=== PATIENT | male | born 1960 | race Caucasian/White ===

== ENCOUNTER 2023-06-06 08:47 | Outpatient (CLI) | payer BC, SELFPAY ==
--- NOTE | ~2023-06-06 | CT_ITS ---
Non-contrast CT scan of the Pelvis Clinical indication: Inguinal hernia Technique: 2.5 mm axial scans were obtained through the pelvis without intravenous or oral contrast. Dose reduction technique was used on this scan by utilizing automated exposure control and iterative reconstruction technique. The dose-length product (DLP) was 472.40 mGy-cm. Findings: There is sigmoid diverticulosis. No evidence for bowel obstruction. No ascites. Urinary hailey dder unremarkable. No pelvic mass evident. Moderate sized fat-containing left inguinal hernia present. Impression: Moderate sized fat-containing left inguinal hernia. Sigmoid diverticulosis with probable mild chronic wall thickening. Correlate clinically for any possi bility of mild acute diverticulitis. Reviewed, dictated and finalized at location . Impression: Moderate sized fat-containing left inguinal hernia. Sigmoid diverticulosis with probable mild chronic wall thickening. Correlate cl inically for any possibility of mild acute diverticulitis.
== END 2023-06-06 08:48 | disposition home or self-care (01) ==
LOC: ANHIMG 08:50
PROVIDERS: PCP Family Medicine; Visit Provider Surgery
DX: K40.90 Unilateral inguinal hernia, without obstruction or gangrene, not specified as recurrent (principal); K57.30 Diverticulosis of large intestine without perforation or abscess without bleeding
CPT/HCPCS: 72192

== ENCOUNTER 2023-07-13 07:47 | Outpatient (CLI) | payer BC, SELFPAY ==
--- NOTE | 2023-07-13 08:00 | ECG_ITS ---
SEE SCANNED COPY FOR CONFIRMED REPORT MTDD
[2023-07-13 08:30] LABS: Basophils Absolute Auto 0.1 K/mm3 (0.0-0.1); Basophils Percent Auto 0.5 % (0.2-1.2); Eosinophils Absolute Auto 0.2 K/mm3 (0-0.3); Eosinophils Percent Auto 2.2 % (0-4.4); Hematocrit 48.2 % (42.0-52.0); Hemoglobin 15.7 g/dL (14.0-18.0); Immature Granulocyte Absolute 0.04 K/mm3 (0.00-0.031); Immature Granulocyte Percent A 0.4 % (0-0.5); Lymphocytes Absolute Auto 2.93 K/mm3 (0.9-3.2); Lymphocytes Percent Auto 31.3 % (18.3-44.2); Mean Corpuscular HGB Conc 32.6 g/dl (32-36); Mean Corpuscular Hemoglobin 30.3 pg (26-34); Mean Corpuscular Volume 92.9 fl (80-100); Mean Platelet Volume 10.8 fl (7.4-10.4); Monocytes Absolute Auto 0.9 K/mm3 (0.1-0.6); Monocytes Percent Auto 9.4 % (2.6-8.5); Neutrophils Absolute Auto 5.3 K/mm3 (1.3-6.7); Neutrophils Percent Auto 56.2 % (45.5-73.1); Platelet Count Result 208 k/mm3 (150-375); Red Blood Count 5.19 M/mm3 (4.6-6.20); Red Cell Distribution Width 13.4 % (11.5-14.5); White Blood Count 9.4 K/mm3 (4.5-10.0)
== END 2023-07-13 07:48 | disposition home or self-care (01) ==
LOC: ANHSURGERY 07:50
PROVIDERS: PCP Family Medicine; Visit Provider Surgery
DX: Z01.818 Encounter for other preprocedural examination (principal); K40.90 Unilateral inguinal hernia, without obstruction or gangrene, not specified as recurrent; I10 Essential (primary) hypertension
CPT/HCPCS: 36415; 85025; 86850; 86900; 86901; 93005

== ENCOUNTER 2023-07-17 00:49 | Day surgery (SDC) | payer BC, SELFPAY ==
[2023-07-10 08:07] VITALS: BMI 28.5
--- NOTE | 2023-07-10 08:13 | PC.NURSE ---
Report to the Outpatient Waiting Room, entrance under the green pavilion located off [facility], at time _1130_ on date _[id number]_. Planned Procedure Time: _130pm_. Time changes happen often and if your time is changed the preop area will call you the afternoon before. - You and your visitor will be asked to self-screen and do not enter if you have any COVID symptoms. - A mask is optional within the hospital at this time. Patients may have clear liquids (water, carbonated beverages, clear teas, apple juice) until 3 hours prior to surgery with a maximum of 20 ounces. - No food from midnight until time of surgery Take the following medications with a SIP of water the morning of surgery: __Metoprolol DO NOT STOP ANY OF YOUR OTHER PRESCRIPTION MEDICATIONS PRIOR TO SURGERY ?EXCEPT THE FOLLOWING Medications to discontinue per physician ____None Date to take last dose Please no make-up, nail georgian, hairspray, perfume, deodorant, or body powder the day of surgery. No jewelry (including any body piercings) or valuables the day of surgery, leave them at home. Please take a shower or bath the night before, or the morning of, surgery with an antibacterial soap. Wear comfortable, loose fitting clothing. - Jewelry must be removed prior to entering the operating room. Rings and piercings that are not removed may be cut off. - The hospital will not accept responsibility for valuables. - Please leave all valuables, including medications, at home the day of surgery. If you are going home after surgery, a licensed concrete mixer truck driver must drive you home. - NO public transportation without another adult if you receive anesthesia. - We recommend that an adult stay with you for 24 hours following discharge. - We also recommend that you do not drive, make important decision, drink alcoholic beverages, or take any drugs that were not prescribed by your health care provider for at least 24 hours after your discharge time. Follow any additional instructions given to you from your surgeon. If you or anyone in your household have experienced Covid symptoms in the past week, please notify your surgeon or the nurse liaison at the phone number below for possible testing. Telephone instructions given to __Tank__and asked if any additional questions and then verbalized understanding. Patient advised to call surgeon office or pre surgery nurse liaison [phone] if any additional questions.
--- NOTE | 2023-07-16 16:44 | PM.SD2 ---
Same Day Admit/Disch: HPI History of Present Illness Chief complaint: sliding Left inguinal hernia Narrative: Tank Hidalgo is a 62 year old male who has had a left inguinal bulge for at least 5-7 years. It has gotten larger and is now painful when straining or coughing. At exam in the office, this was concerning for a sliding left inguinal hernia. A CT abd/pelvis done showed Impression: Moderate sized fat-containing left inguinal hernia. Sigmoid diverticulosis with probable mild chronic wall thickening. Correlate clinically for any possibility of mild acute diverticulitis. He is taken to surgery now for robotic laparoscopic repair of a large left inguinal hernia, worrisome for sliding hernia. FORMERLY [facility], [facility] Family History Family History Mother Family history of lung cancer Father Family history of congestive heart failure Other Diabetes mellitus Hypertension Social History Social History Smoking status: Never smoker Alcohol intake: current Drinks per week: 3 Living arrangements: with family Spiritual care concerns: No Same Day Admit/Disch: Med Pre-admit Medications Home Medications Medication Instructions Recorded Confirmed Type sildenafil 50 mg tablet 50 mg PO DAILY PRN sexual activity 11/17/19 07/17/23 Rx #12 tabs metoprolol succinate 50 mg See Rx Instructions .Route 03/28/21 07/17/23 Rx tablet,extended release 24 hr .COMPLEX #90 tabs ketorolac 10 mg tablet 10 mg PO Q6H 4 days #16 tabs 07/17/23 Rx oxycodone-acetaminophen 5 mg-325 0.5 - 1 tablet PO Q6H PRN pain #10 07/17/23 Rx mg tablet tabs Review of Systems Review of Systems All systems reviewed & are unremarkable except as noted in HPI and below (HPI) Exam Const: General: comfortable, no acute distress, alert and awake HENMT: Head: normocephalic and atraumatic Mouth: Yes Normal oral and palatal mucosa present Eyes: Conjunctivae: conjunctivae normal Pupils: Equal, round and reactive pupils present EOM: EOMs intact bilaterally Neck: Neck: normal visual inspection, no lymphadenopathy and nontender Resp: Effort & Inspection: normal respiratory effort Auscultation: clear to auscultation bilaterally Cardio: Rate: regular rate Rhythm: regular rhythm Heart sounds: no gallops, no murmurs and no rubs GI: Inspection: non-distended GI Palp: Yes Soft to palpation, No Tenderness to palpation present (GI), No Hepatomegaly present and No Splenomegaly present : Male General Exam: No ecchymosis, No edema, Yes hernia (large left inguinal hernia extending into the scrotum, reducible) and No tenderness Penis: Yes normal penis Scrotum: testes descended bilaterally, inguinal hernia on the left and scrotal mass on the left Testes: Testes normal Skin: Lesions: no lesions Rashes: no rashes Neuro: General: no focal motor deficits and CN's II-XI intact bilaterally Cranial nerves: Yes Equal, round and reactive pupils present, Yes Bilaterally intact EOM present, Yes facial symmetry and Yes Midline tongue present Speech: normal speech Motor exam (neuro): 5/5 motor strength present throughout and Motor abnormalities not present Extrem: General: no clubbing, cyanosis or edema and edema Psych: Affect: normal affect Thought process: Normal thought process present Insight: Good insight present (Psych) DS: Summary Time Spent with Patient Time attestation: Total time spent providing and/or coordinating discharge services: DS: Admitting Diagnosis Discharge Date 07/17/23 Admitting Diagnosis large, reducible left inguinal hernia--plan to proceed with robotic laparoscopic repair with mesh. The procedure, alternatives, risks, time of surgery and time of usual recovery were discussed. The use of permanent mesh was discussed. All questions were answered. He agrees to go ahead. essential hypertension DS: Discharge Diagnosis Discharge Di
[2023-07-17] VITALS (8 sets, daily range): BP systolic 136–163; BP diastolic 67–78; PULSE 56–69; RESP 12–20; TEMP 36.2–36.8; O2SAT 94–100
[2023-07-17] MEDS: KETOROLAC 15 MG/ML VIAL (*BKC) IV PUSH (12:23)
[2023-07-17] MEDS: ACETAMINOPHEN 500 MG TABLET 1000 MG PO (12:23)
--- NOTE | 2023-07-17 13:18 | WPDHPUPDATE1 ---
History and Physical Update Update Date/Time: 07/17/23 13:18 History and Physical has been reviewed, including an updated exam of the patient. There are NO changes in the patient's condition. Risks, benefits, and alternatives have been discussed and questions answered. Patient agrees to proceed with procedure.
--- NOTE | 2023-07-17 13:23 | P.PNAN_ITS ---
Anes - Initial Pre Proc Eval Procedure: Operation Date: 07/17/23 13:30 Proposed Procedures p Robotic Assisted Sliding Left Inguinal Hernia Repair with Mesh - Medhat Jhaveri MD Date/Time: 07/17/23 13:23 Surgeon: Medhat Jhaveri MD Pre Op Diagnosis: sliding Left inguinal hernia Patient Data Age: 62 Gender: M Height: 1.83 m Weight: 96 kg Last Vital Signs Temp 98.3 F 07/17/23 12:00 Pulse 61 07/17/23 12:00 Resp 16 07/17/23 12:00 BP 146/67 H 07/17/23 12:00 Pulse Ox 99 07/17/23 12:00 O2 Del Method Room Air 07/17/23 12:00 Allergies Allergy/AdvReac Type Severity Reaction Status Date / Time No Known Allergies Allergy Verified 07/17/23 12:14 Home Medications Medication Instructions Recorded Confirmed Type sildenafil 50 mg tablet 50 mg PO DAILY PRN sexual activity 11/17/19 07/17/23 Rx #12 tabs metoprolol succinate 50 mg See Rx Instructions .Route 03/28/21 07/17/23 Rx tablet,extended release 24 hr .COMPLEX #90 tabs Patient hx anesthesia problems: none Family hx anesthesia problems: none Results Review: All pre-operative results and documents have been reviewed as part of the pre-operative evaluation. FORMERLY [facility], [facility] Family History Family History Mother Family history of lung cancer Father Family history of congestive heart failure Other Diabetes mellitus Hypertension Social History Social History Smoking status: Never smoker Alcohol intake: current Drinks per week: 3 Living arrangements: with family Spiritual care concerns: No Anes - Eval Final PreProcedure Day of Procedure 07/17/23 13:23 Patient weight: normal Heart: regular rate and rhythm Lungs: clear to auscultation Airway: Mallampati scale class III (upper implants) Neurological: alert and oriented Last oral intake: >/= 8 hours ASA classification: II Emergent: no Anesthetic plan: proceed Anesthesia type and monitoring: general ETT and standard monitoring Results Review: All pre-operative results and documents have been reviewed as part of the pre- operative evaluation. Informed Consent: The patient's anesthetic plan and its attendant risks and benefits were discussed with the patient/family/POA. Questions were solicited and answers provided to the satisfaction of the patient/family/POA.
[2023-07-17] MEDS: ceFAZolin 2 GM/D5W 50 ML 2 GM/50 ML BAG IVPB (13:29)
[2023-07-17] MEDS: LACTATED RINGERS 1,000 ML 30 ML IV CONT ×2 (13:30→15:35)
[2023-07-17] MEDS: BUPIVACAINE/EPINEPHRINE 0.5% 10 ML VIAL 30 ML INFILTRATE (13:41)
--- NOTE | 2023-07-17 15:42 | W.PM.PROC2 ---
Procedure Note - Detailed Date of Procedure 07/17/23 Pre-op Diagnosis sliding Left inguinal hernia Post-op Diagnosis Other (Left inguinal hernia) Procedure Performed Robotic laparoscopic repair left inguinal hernia with mesh Surgeon Medhat Jhaveri MD Lead Quality Technician [facility] Anesthesia General and Local Indications Patient hands had a left inguinal bulge for 5-7 years. It has gotten progressively larger. When he strains or coughs he has pain there. He was seen in the office and found to have a reducible left inguinal hernia. He is taken to surgery now for repair. In the office the hernia was large enough that it did seem to contain abdominal viscera. Preoperative CT scan showed only a fat containing left inguinal hernia. Findings This was a large direct and indirect hernia. Primarily it was a direct hernia. No other significant findings were noted. It was not a sliding hernia. Description of Procedure Patient was taken to surgery and induced into general anesthesia. An Miguel A wrap was placed around the scrotum to avoid CO2 distension. The abdomen was prepped and draped. Trocars were placed in the usual fashion using local anesthetic and then applied Medical optical trocar. Robotic trocars were placed after the initial 5 mm trocar. Eventually the 5 mm was also traded out for an 8 mm robotic trocar. We also placed the suture and the mesh in the abdomen. The robot was brought into the field. The camera was docked and targeted. The instrument arms were docked and instruments were placed appropriately. The surgeon went to the robotic console. A peritoneal flap was started over the anterior aspect of the inguinal canal structures. Sigmoid colon was adherent by adhesions to the lateral aspect of the lower portion of the peritoneal flap. Once the flap was developed all across the inguinal canal to the median umbilical ligament, dissection was carried out broadly freeing the flap from the underlying structures. This was started laterally and then we proceeded medially. In the medial aspect we dissected down deep to the posterior peritoneum and up against the left rectus muscle. We continued in this dissection plane until the pubis and Ricki's ligament were identified. The bladder was carefully dissected posteriorly to Ricki's ligament and the pubis. Cautery was used for hemostasis. We also dissected across the midline and continued this dissection so that the mesh could be placed across the midline onto the medial aspect of the right rectus muscle. I then turned my attention to the large direct hernia. This was carefully dissected and transversalis fascia was dissected off the peritoneal sac. There was quite a bit of fatty tissue in the hernia. This was dissected and left attached to the posterior peritoneal flap. I then went to the internal ring and found a small hernia there as well. This was dissected by dividing the transversalis sling and carefully dissecting out this hernia sac. The peritoneum was then dissect opted posteriorly so that the spermatic cord vessels and the vas deferens were left in the internal ring and attached to the pelvic floor. I then went back to the medial aspect and continued this dissection until the obturator plug was seen. Care was taken to avoid the iliac artery and vein. At this point it seemed the dissection was quite adequate. Bleeding had been controlled with cautery and bipolar cautery. A 17 x 12 cm left-sided mid 3DMax mesh was then positioned in the pelvic floor. The medial aspect was placed over the pubis and Ricki's ligament and extended across the midline. The mesh was positioned so that it was flat against the pubis and that the posterior aspect of the mesh was not tented up by any of the fatty tissue or peritoneum. I then sutured the mesh in place using interrupted 3-0 Vicryl suture. One suture was placed in Ricki's ligament. Two other sutures were placed anteriorly, 1 medial to the inferior e
[2023-07-17] MEDS: oxyCODONE HCL (*CRX) 5 MG TAB IR PO (16:56)
== END 2023-07-17 17:22 | disposition home or self-care (01) ==
PROVIDERS: PCP Family Medicine; Visit Provider Surgery
PROC: 8E0Y4CZ Robotic Assisted Procedure of Lower Extremity, Percutaneous Endoscopic Approach (ICD-10-PCS; CPT 49650; principal; 2023-07-17 13:30)
DX: K40.90 Unilateral inguinal hernia, without obstruction or gangrene, not specified as recurrent (principal)
CPT/HCPCS: 49650; S2900; A9270; C1781; J0690; J1100; J1170; J1596; J1885; J2250; J2371; J2405; J2704; J3010; J7030; J7120

== ENCOUNTER 2023-08-01 08:16 | Outpatient (CLI) | payer BC, SELFPAY ==
--- NOTE | ~2023-08-01 | US_ITS ---
EXAMINATION: US soft tissue groin LT DATE: 08/01/2023 08:34 INDICATION: Left groin pain and bulge post left inguinal hernia repair TECHNIQUE: Multiple grayscale and Doppler ultrasound images of the region of concern at the left groi n were obtained. COMPARISON: CT dated 06/06/2023 FINDINGS: There is a 6.9 x 2.8 x 4.9 cm complex fluid collection in the left inguinal region of concern. The co llection has a Algerian cheese appearance with multiple small anechoic cystic spaces by a reti cular pattern of multiple intervening septations. Appearance is most suggestive of an organizing brock gail. A small focus of color seen within the likely hematoma on power Doppler, potentially representi ng flow either within a small vessel or potentially active extravasation. Along side the complex sridevi ection there is a small amount of more hyperechoic soft tissue suggest residual herniated fat. No evie dent herniated bowel. IMPRESSION: 1. 6.9 x 2.8 x 4.9 cm complex fluid collection at the left inguinal region of concern with appearance most consistent with an organizing hematoma. Small focus of flow within the suspected hematoma which could represent either a vessel or point of active extravasation. Reviewed, dictated and finalized at location A. IMPRESSION: 1. 6.9 x 2.8 x 4.9 cm complex fluid collection at the left inguinal region of c oncern with appearance most consistent with an organizing hematoma. Small focus of flow within the suspected hematoma which could represent either a vessel or point of active extravasation.
== END 2023-08-01 08:17 ==
LOC: MICIMG 08:17
PROVIDERS: PCP Surgery; Visit Provider Surgery
DX: K40.90 Unilateral inguinal hernia, without obstruction or gangrene, not specified as recurrent (principal)
CPT/HCPCS: 76882